=== PATIENT | male | born 1970 | race Caucasian/White ===

== ENCOUNTER 2016-12-03 21:02 | Emergency (ER) | payer BC, OTHER ==
--- NOTE | 2016-12-03 22:05 | ERPHSYRPT ---
- History of Present Illness Time Seen by Provider: 12/03/16 22:01 Source: patient Exam Limitations: no limitations Patient Subjective Stated Complaint: states that he was slipping to fall at work and caught his right arm on a bar, and heard a pop in the shoulder, causing pain - states that he can not raise the arm up now without terrible pain Triage Nursing Assessment: ambulatory to treatment area - steady gait - moves all extermities with equal strength - disability to the right arm and shoulder. skin flushed/hot/dry - no rash/injury. resps easy, non-labored, shallow per pain. 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 He prevented falling by grasping a bar at shoulder height, causing strain on his right shoulder. He is right-handed. His past medical history is significant for diabetes. Occurred: just prior to arrival Method of Injury: other Quality: aching Severity of Pain-Max: moderate Severity of Pain-Current: moderate Extremities Pain Location: shoulder: right Modifying Factors: Improves With: nothing Associated Symptoms: none Allergies/Adverse Reactions: No Known Drug Allergies Allergy (Unverified 12/03/16 21:13) Home Medications: Glimepiride 1 mg PO BID 12/03/16 [History] Metformin HCl 1,000 g PO BID 12/03/16 [History] Hx Tetanus, Diphtheria Vaccination/Date Given: Yes Hx Influenza Vaccination/Date Given: No Hx Pneumococcal Vaccination/Date Given: No Immunizations Up to Date: Yes - Review of Systems Constitutional: No Fever, No Chills Eyes: No Symptoms Ears, Nose, & Throat: No Symptoms Respiratory: No Cough, No Dyspnea Cardiac: No Chest Pain, No Edema, No Syncope Abdominal/Gastrointestinal: No Abdominal Pain, No Nausea, No Vomiting, No Diarrhea Genitourinary Symptoms: No Dysuria Musculoskeletal: Fall, Joint Pain Skin: No Rash Neurological: No Dizziness, No Focal Weakness, No Sensory Changes Psychological: No Symptoms Endocrine: No Symptoms Hematologic/Lymphatic: No Symptoms Immunological/Allergic: No Symptoms All Other Systems: Reviewed and Negative - Past Medical History Pertinent Past Medical History: Yes Cardiac History: Hypertension Endocrine Medical History: Diabetes Type II - Past Surgical History Past Surgical History: Yes Gastrointestinal: Appendectomy Musculoskeletal: Orthopedic Surgery Other Surgical History: ANKLES, WRIST - Social History Smoking Status: Never smoker Exposure to second hand smoke: No Drug Use: none Patient Lives Alone: No - Nursing Vital Signs Nursing Vital Signs: Initial Vital Signs Temperature 98.8 F Temperature Source Oral Pulse Rate 67 Respiratory Rate 20 Blood Pressure [Left Arm] 155/91 Pain Intensity 8 - Physical Exam General Appearance: alert Eyes, Ears, Nose, Throat Exam: moist mucous membranes Neck Exam: non-tender, supple Cardiovascular/Respiratory Exam: chest non-tender, normal breath sounds, regular rate/rhythm, no respiratory distress Abdominal Exam: non-tender, No guarding Back Exam: normal inspection, No vertebral tenderness Shoulder Exam: limited ROM (Evaluation of the right shoulder reveals limited range of upward extension secondary to pain. There is also limited range of external rotation of the right shoulder.) Elbow/Forearm Exam: normal inspection Wrist Exam: normal inspection Hand Exam: normal inspection Neuro/Tendon Exam: normal sensation, normal motor functions Mental Status Exam: alert, oriented x 3, cooperative Skin Exam: normal color, warm, dry SpO2 Interpretation: normal SpO2: 98 Oxygen Delivery: Room Air - Radiology Exams Right Shoulder X-ray Interpretation: Interpreted by me, Negative Ordered Tests: Active Orders 24 hr Category Date Time Status SHOULDER Stat Exams 12/03/16 22:05 Taken - Progress Progress: unchanged Counseled pt/family regarding: diagnosis, rad results - Departure Time of Disposition: 22:53 Departure Disposition: Home Clinical Impression: Right shoulder injury Condition: Stable Critical Care Time: No Additional Instructions: You injured her right shoulder while at work. The x-ray of your right shoulder did not show any bony abnormalities. The injury is likely a soft tissue injury that may involve the rotator cuff muscles. Wear the sling for comfort until follow-up with the Workmen's Comp. doctor on Tuesday. You have pain medicine at home. Take as directed.
[2016-12-03 22:48] VITALS: BP 155/91; PULSE 67
[2016-12-03 22:56] VITALS: O2SAT 98
--- NOTE | 2016-12-04 07:54 | XRAY ---
Indication: Pain following hyperextension injury. Comparison: None 3 views of the right shoulder demonstrates moderate AC degenerative arthropathy and right lung base subsegmental atelectasis/scarring. No other bony, articular, or soft tissue abnormalities.
== END 2016-12-03 23:03 | disposition home or self-care (01) ==
LOC: ED 21:02
DX: S49.91XA Unspecified injury of right shoulder and upper arm, initial encounter (principal); W01.198A Fall on same level from slipping, tripping and stumbling with subsequent striking against other object, initial encounter; Y93.39 Activity, other involving climbing, rappelling and jumping off; Y92.64 Mine or pit as the place of occurrence of the external cause; Y99.0 Civilian activity done for income or pay
CPT/HCPCS: 73030; 99283

== ENCOUNTER 2023-08-10 06:48 | Emergency (ER) | payer BC, OTHER ==
--- NOTE | 2023-08-10 07:11 | ERPHSYRPT ---
- History of Present Illness Time Seen by Provider: 08/10/23 07:05 Historian: patient, family Exam Limitations: no limitations Physician History: This is a 53-year-old white male patient who is a former smoker cigarettes and occasionally uses marijuana via smoking of marijuana and woke up suddenly at 4 AM with epigastric and lower chest pain. There is no radiation of the pain. Patient has a history of hypothyroidism and diabetes. He also has a history of coronary artery disease. In 2018 he underwent a 6 vessel cardiac bypass per his report in [facility]. Patient is not on any anticoagulation therapy. He denies having hypertension. He denies having hyperlipidemia. He woke up suddenly this morning and then went into work but the symptoms did not resolve. Patient ate goulash last evening (hamburger, cheese, peas and corn mixture). He does feel bloated and gassy. Timing/Duration: today Location: epigastric Chest Pain Radiation: no radiation Severity of Pain-Max: moderate Severity of Pain-Current: moderate Modifying Factors: Improves With: other (Patient did drink a Coke prior to arrival but this did not help his symptoms. He feels as though he has to burp.) Associated Symptoms: abdominal pain (Epigastric) Nitro Today/Relief: no nitro taken today Aspirin Treatment Today: no aspirin today Allergies/Adverse Reactions: No Known Drug Allergies Allergy (Verified 08/10/23 06:50) Home Medications: Glimepiride 1 mg PO BID 12/03/16 [History] Metformin HCl 1,000 mg PO BID 12/03/16 [History] Levothyroxine Sodium 112 Mcg [Synthroid 112 Mcg] 112 mcg PO DAILY 08/10/23 [History] Sertraline HCl 50 mg [Zoloft 50 mg Tablet] 50 mg PO DAILY 08/10/23 [History] Hx Tetanus, Diphtheria Vaccination/Date Given: Yes Hx Influenza Vaccination/Date Given: No Hx Pneumococcal Vaccination/Date Given: No Travel Risk - International Travel Have you traveled outside of the country in past 3 weeks: No - Coronavirus Screening Are you exhibiting any of the following symptoms?: No Close contact with a COVID-19 positive Pt in past 14-21 Days: No - Review of Systems Constitutional: No Symptoms Eyes: No Symptoms Ears, Nose, & Throat: No Symptoms Respiratory: No Symptoms Cardiac: Chest Pain Abdominal/Gastrointestinal: Abdominal Pain (Epigastric) Genitourinary Symptoms: No Symptoms Musculoskeletal: No Symptoms Skin: No Symptoms Neurological: No Symptoms Psychological: No Symptoms Endocrine: No Symptoms Hematologic/Lymphatic: No Symptoms Immunological/Allergic: No Symptoms All Other Systems: Reviewed and Negative - Past Medical History Pertinent Past Medical History: Yes Cardiac History: Hypertension Endocrine Medical History: Diabetes Type II - Past Surgical History Past Surgical History: Yes Gastrointestinal: Appendectomy Musculoskeletal: Orthopedic Surgery Other Surgical History: ANKLES, WRIST - Social History Smoking Status: Never smoker Exposure to second hand smoke: No Drug Use: none Patient Lives Alone: No - Nursing Vital Signs Nursing Vital Signs: Initial Vital Signs Temperature 97.2 F 08/10/23 06:49 Pulse Rate 78 08/10/23 06:49 Respiratory Rate 26 H 08/10/23 06:49 Blood Pressure 198/114 08/10/23 06:49 O2 Sat by Pulse Oximetry 98 08/10/23 06:49 Pain Scale Pain Intensity 0 - Physical Exam General Appearance: no apparent distress, alert, anxiety Eye Exam: PERRL/EOMI, eyes nml inspection Ears, Nose, Throat Exam: normal ENT inspection, moist mucous membranes Neck Exam: normal inspection, non-tender, supple, full range of motion Respiratory Exam: normal breath sounds, chest tenderness, lungs clear, airway intact, No respiratory distress Cardiovascular Exam: regular rate/rhythm, normal heart sounds, normal peripheral pulses Gastrointestinal/Abdomen Exam: soft, normal bowel sounds, tenderness (Gastrium), guarding (Epigastrium), No rebound Rectal Exam: not done Back Exam: normal inspection, normal range of motion, No CVA tenderness, No vertebral tenderness Extremity Exam: normal inspection, normal range of motion, pelvis stable Neurologic Exam: alert, oriented x 3, cooperative, merchant mariner II-XII nml as tested, normal mood/affect, nml cerebellar function, nml station & gait, sensation nml Skin Exam: normal color, warm, dry Lymphatic Exam: No adenopathy SpO2 Interpretation: normal O2 Delivery: Room Air - Course Nursing assessment & vital signs reviewed: Yes EKG Interpreted by Me: RATE (81), Sinus Rhythm, NORMAL AXIS, NORMAL INTERVALS, NORMAL QRS, NORMAL ST-T, Other (No acute ischemia on today's twelve-lead EKG.) Ordered Tests: Active Orders 24 hr Category Date Time Status Construction Foreman STAT Care 08/10/23 07:24 Active EKG-ER Only STAT Care 08/10/23 07:23 Active IV Insertion STAT Care 08/10/23 07:23 Active Pulse Oximetry (ED) STAT Care 08/10/23 07:23 Active ABDOMEN AND PELVIS W/0 CONTRAS [CT] Stat Exams 08/10/23 07:39 Completed AMYLASE Stat Lab 08/10/23 07:35 Completed CBC W DIFF Stat Lab 08/10/23 07:35 Completed CMP Stat Lab 08/10/23 07:35 Completed D-DIMER QUANTITATIVE Stat Lab 08/10/23 07:35 Completed LIPASE Stat Lab 08/10/23 07:35 Completed PROTIME WITH INR Stat Lab 08/10/23 07:35 Completed TROPONIN Q4H Lab 08/10/23 07:35 Completed TROPONIN Q4H Lab 08/10/23 10:15 Completed TROPONIN Q4H Lab 08/10/23 15:30 Ordered TSH, 3RD Generation Stat Lab 08/10/23 07:35 Completed Medication Summary Discontinued Medications Generic Name Dose Route Start Last Admin Trade Name Moq PRN Reason Stop Dose Admin Aspirin 324 mg 08/10/23 07:23 08/10/23 07:31 Aspirin 81 Mg Tab.Chew PO 08/10/23 07:24 324 mg STAT ONE Administration Aspirin Confirm 08/10/23 07:29 Aspirin 81 Mg Tab.Chew Administered 08/10/23 07:30 Dose 324 mg .ROUTE .STK-MED ONE Morphine Sulfate 2 mg 08/10/23 07:36 08/10/23 07:57 Morphine Sulfate 2 Mg/Ml Inj IV 08/10/23 07:37 2 mg STAT ONE Administration Morphine Sulfate Confirm 08/10/23 07:52 Morphine Sulfate 2 Mg/Ml Inj Administered 08/10/23 07:53 Dose 2 mg .ROUTE .STK-MED ONE Nitroglycerin 0.4 mg 08/10/23 07:35 08/10/23 07:55 Nitroglycerin 0.4 Mg Tablet Bottle SL 08/10/23 07:36 0.4 mg STAT ONE Administration Nitroglycerin Confirm 08/10/23 07:52 Nitroglycerin 0.4 Mg (Ed) 0.4 Mg Tab.Subl Administered 08/10/23 07:53 Dose 0.4 mg SL .STK-MED ONE Ondansetron HCl 4 mg 08/10/23 07:36 08/10/23 07:55 Ondansetron Hcl 4 Mg/2 Ml Vial IV 08/10/23 07:37 4 mg STAT ONE Administration Ondansetron HCl Confirm 08/10/23 07:51 Ondansetron Hcl 4 Mg/2 Ml Vial Administered 08/10/23 07:52 Dose 4 mg .ROUTE .STK-MED ONE Lab/Rad Data: Laboratory Result Diagrams 08/10/23 07:35 08/10/23 07:35 Laboratory Results 08/10/23 08/10/23 08/10/23 Range/Units 10:15 07:35 07:35 WBC (4.0-10.5) x10^3/uL RBC (4.1-5.6) x10^6/uL Hgb (12.5-18.0) g/dL Hct (42-50) % MCV (78-100) fL MCH (26-32) pg MCHC (32-36) g/dL RDW (11.5-14.0) % Plt Count (150-450) x10^3/uL MPV (7.5-11.0) fL Gran % (36.0-66.0) % Immature Gran % (Auto) (0.00-0.4) % Nucleat RBC Rel Count (0.00-0.1) % Eos # (Auto) (0-0.5) x10^3/uL Immature Gran # (Auto) (0.00-0.03) x10^3u/L Absolute Lymphs (auto) (1.0-4.6) x10^3/uL Absolute Monos (auto) (0.0-1.3) x10^3/uL Absolute Nucleated RBC (0.00-0.01) x10^3u/L Lymphocytes % (24.0-44.0) % Monocytes % (0.0-12.0) % Eosinophils % (0.00-5.0) % Basophils % (0.0-0.4) % Absolute Granulocytes (1.4-6.9) x10^3/uL Basophils # (0-0.4) x10^3/uL PT 10.3 (9.4-12.5) SECONDS INR 0.94 (0.8-3.0) D-Dimer 0.33 (0.0-0.50) mg/L Sodium (137-145) mmol/L Potassium (3.5-5.1) mmol/L Chloride (98-107) mmol/L Carbon Dioxide (22-30) mmol/L Anion Gap (5-15) MEQ/L BUN (9-20) mg/dL Creatinine (0.66-1.25) mg/dL Estimated GFR ML/MIN Glucose (74-106) mg/dL Calcium (8.4-10.2) mg/dL Total Bilirubin (0.2-1.3) mg/dL AST (17-59) U/L ALT (0-50) U/L Alkaline Phosphatase (38-126) U/L Troponin I < 0.012 < 0.012 (0.000-0.034) ng/mL Serum Total Protein (6.3-8.2) g/dL Albumin (3.5-5.0) g/dL Amylase (30-110) U/L Lipase (23-300) U/L TSH 3rd Generation (0.47-4.68) mIU/L 08/10/23 08/10/23 Range/Units 07:35 07:35 WBC 9.3 (4.0-10.5) x10^3/uL RBC 4.90 (4.1-5.6) x10^6/uL Hgb 16.0 (12.5-18.0) g/dL Hct 43.6 (42-50) % MCV 89.0 (78-100) fL MCH 32.7 H (26-32) pg MCHC 36.7 H (32-36) g/dL RDW 12.4 (11.5-14.0) % Plt Count 216 (150-450) x10^3/uL MPV 10.3 (7.5-11.0) fL Gran % 66.9 H (36.0-66.0) % Immature Gran % (Auto) 0.6 H (0.00-0.4) % Nucleat RBC Rel Count 0.0 (0.00-0.1) % Eos # (Auto) 0.30 (0-0.5) x10^3/uL Immature Gran # (Auto) 0.06 H (0.00-0.03) x10^3u/L Absolute Lymphs (auto) 1.83 (1.0-4.6) x10^3/uL Absolute Monos (auto) 0.85 (0.0-1.3) x10^3/uL Absolute Nucleated RBC 0.00 (0.00-0.01) x10^3u/L Lymphocytes % 19.6 L (24.0-44.0) % Monocytes % 9.1 (0.0-12.0) % Eosinophils % 3.2 (0.00-5.0) % Basophils % 0.6 (0.0-0.4) % Absolute Granulocytes 6.23 (1.4-6.9) x10^3/uL Basophils # 0.06 (0-0.4) x10^3/uL PT (9.4-12.5) SECONDS INR (0.8-3.0) D-Dimer (0.0-0.50) mg/L Sodium 137 (137-145) mmol/L Potassium 4.5 (3.5-5.1) mmol/L Chloride 105 (98-107) mmol/L Carbon Dioxide 17 L (22-30) mmol/L Anion Gap 19.1 H (5-15) MEQ/L BUN 21 H (9-20) mg/dL Creatinine 1.22 (0.66-1.25) mg/dL Estimated GFR 70.9 ML/MIN Glucose 287 H (74-106) mg/dL Calcium 10.5 H (8.4-10.2) mg/dL Total Bilirubin 1.10 (0.2-1.3) mg/dL AST 42 (17-59) U/L ALT 47 (0-50) U/L Alkaline Phosphatase 57 (38-126) U/L Troponin I (0.000-0.034) ng/mL Serum Total Protein 7.9 (6.3-8.2) g/dL Albumin 5.0 (3.5-5.0) g/dL Amylase 69 (30-110) U/L Lipase 103 (23-300) U/L TSH 3rd Generation 5.420 H (0.47-4.68) mIU/L - Progress Air Movement: good Progress Note: 08/10/23 08:54 This patient's medical issue is 1 of moderate complexity. The level of complexity in the workup performed is based on review of the patient's past me dical history, review of the patient's medication list, review of the patient's drug allergy list, history of present illness and physical findings on examination. The workup in this patient includes placement of intravenous line, CBC, CMP, BNP, D-dimer, troponin level, twelve-lead EKG, amylase, lipase, CT scan of the abdomen pelvis without contrast. CT scan of the abdomen and pelvis without contrast was interpreted by the radiologist. I reviewed the impression. Findings include distended gallbladder without gallstones and without biliary distention. There is no abdominal aortic aneurysm. An appendectomy is present. There are aortoiliac calcifications. There is mild descending and sigmoid colon diverticulosis without diverticulitis. There is no free air or free fluid present. These findings were discussed with the patient. 08/10/23 10:45 I interpreted the patient's laboratory data results. He does not have any evidence for acute or emergent medical issue based on his laboratory data results. I interpreted the 3-hour twelve-lead EKG that was performed on 08/10/2023 at 10:39 a.m. There are no acute ischemic changes on today's twelve-lead EKG. There is a heart rate of 78 it is in sinus rhythm. There is normal axis deviation. Normal intervals and normal QRS. Patient has no chest pain. Blood Culture(s) Obtained: No Antibiotics given: No Counseled pt/family regarding: lab results, diagnosis, need for follow-up, rad results Medical Desision Making - Independent Historian Additional History obtained from: Family - Diagnostic Testing Diagnostic test were ordered, analyzed, and reviewed by me: Yes Radiological Interpretation: Reviewed by me, Teleradiologist Report - Risk of complications Low Risk: Low risk of morbidity from additional dx testing or treatment - Departure Departure Disposition: Home Clinical Impression: Epigastric abdominal pain Condition: Stable Critical Care Time: No Referrals: EHSAN RAMOS [NON-STAFF PHY W/O PRIVILEGES] - Follow up/PCP as directed Additional Instructions: Drink plenty of fluids. Take your medication as prescribed. Avoid fatty greasy spicy foods. Follow-up with your primary care provider and ingot passer today to make arrangements for further evaluation and management the next 3 to 5 days.
[2023-08-10 07:12] VITALS: TEMP 97.2
[2023-08-10] MEDS ORDERED: BABY ASPIRIN 81 MG CHEW ONE (07:29)
[2023-08-10] MEDS: BABY ASPIRIN 81 MG CHEW PO ONE (07:31)
[2023-08-10 07:44] LABS: Absolute Neutrophil Ct (ANC) 6.23 x10^3/uL (1.4-6.9); BASOPHIL % 0.6 % (0.0-0.4); Basophil (Absolute #) 0.06 x10^3/uL (0-0.4); Eosinophil % 3.2 % (0.00-5.0); Hematocrit 43.6 % (42-50); IMMATURE GRAN # 0.06 x10^3u/L (0.00-0.03); IMMATURE GRAN % 0.6 % (0.00-0.4); Lymphocyte (Absolute #) 1.83 x10^3/uL (1.0-4.6); Lymphocytes % 19.6 % (24.0-44.0); Mean Corpuscular Hemoglobin 32.7 pg (26-32); Mean Corpuscular Hgb Concent. 36.7 g/dL (32-36); Mean Platelet Volume 10.3 fL (7.5-11.0); Monocyte (Absolute #) 0.85 x10^3/uL (0.0-1.3); Monocytes % 9.1 % (0.0-12.0); Neutrophil % 66.9 % (36.0-66.0); Platelet Count 216 x10^3/uL (150-450); Red Cell Distribution Width 12.4 % (11.5-14.0); White Blood Count 9.3 x10^3/uL (4.0-10.5)
[2023-08-10] MEDS ORDERED: Zofran 4 MG/2 ML VIAL ONE (07:51)
[2023-08-10] MEDS ORDERED: MORPHINE SULFATE 2 MG INJ ONE (07:52)
[2023-08-10] MEDS ORDERED: Nitrostat 0.4 MG (ED) SL ONE (07:52)
[2023-08-10 07:54] LABS: D-DIMER QUANTITATIVE 0.33 mg/L (0.0-0.50); INR 0.94 (0.8-3.0); PROTIME 10.3 SECONDS (9.4-12.5)
[2023-08-10] MEDS: Zofran 4 MG/2 ML VIAL IV ONE (07:55)
[2023-08-10] MEDS: Nitrostat 0.4 MG Tablet SL ONE (07:55)
[2023-08-10] MEDS: MORPHINE SULFATE 2 MG INJ IV ONE (07:57)
[2023-08-10 08:32] LABS: ANION GAP 19.1 MEQ/L (5-15); BILIRUBIN,TOTAL 1.1 mg/dL (0.2-1.3); Calcium 10.5 mg/dL (8.4-10.2); Creatinine 1 1.22 mg/dL (0.66-1.25); EST GLOMERULAR FILTRATION RATE 70.9 ML/MIN; Potassium 4.5 mmol/L (3.5-5.1); TSH, 3RD Generation 5.42 mIU/L (0.47-4.68); Total Protein 7.9 g/dL (6.3-8.2)
--- NOTE | 2023-08-10 08:41 | XRAY ---
Indication: Epigastric pain. Multiple contiguous axial images obtained through the abdomen and pelvis without contrast. Comparison: None Lung bases clear. Heart not enlarged. Noncontrasted stomach and bowel loops appear nonobstructed. Appendectomy reported. Minimal descending and sigmoid diverticulosis without diverticulitis. Moderately distended gallbladder without gallstones or biliary distention. No free fluid/air. Remaining liver, pancreas, spleen, adrenal glands, kidneys, ureters, and bladder are unremarkable for noncontrast exam. Mild scattered aortoiliac calcifications without AAA. Osseous structures intact with mild degenerative changes throughout the thoracolumbar spine and both hips. Impression: 1. Distended gallbladder. Sonogram may yield further information if clinically warranted. 2. Chronic findings including colonic diverticulosis, arteriosclerotic disease, and chronic bony findings.
[2023-08-10 10:41] VITALS: O2SAT 97
[2023-08-10 11:35] VITALS: BP 144/89; PULSE 79; RESP 22
== END 2023-08-10 11:36 | disposition home or self-care (01) ==
LOC: ED 06:48
DX: R10.13 Epigastric pain (principal); R07.9 Chest pain, unspecified; I10 Essential (primary) hypertension; E11.9 Type 2 diabetes mellitus without complications; Z79.84 Long term (current) use of oral hypoglycemic drugs; Z79.899 Other long term (current) drug therapy
CPT/HCPCS: 36000; 36415; 74176; 80053; 82150; 83690; 84439; 84443; 84484; 85025; 85379; 85610; 93005; 93041; 94760; 96374; 96375; 99284; J2270; J2405; A9270-GY

== ENCOUNTER 2024-01-02 08:16 | Day surgery (SDC) | payer BC ==
--- NOTE | 2024-01-02 08:23 | HP ---
HISTORY OF PRESENT ILLNESS: The patient has had some right upper quadrant epigastric pain. Two attacks. Has had ultrasound, no stones. He had an abnormal HIDA of 18% suggestive of chronic cholecystitis, dyskinesia. No nausea or vomiting. No change in bowel habits. Denies any liver problems. PAST MEDICAL HISTORY: Hypothyroidism, type 2 diabetes, hyperlipidemia, depression, anxiety. HOME MEDICATIONS: Aspirin, simvastatin, sertraline, levothyroxine, glimepiride, metformin. ALLERGIES: No known drug allergies. PAST SURGICAL HISTORY: Had CABG, 6 vessels in the past; appendectomy; ankle surgery; rotator cuff; wrist surgery; and vasectomy in the past. SOCIAL HISTORY: No smoking. Occasional alcohol use. Occasional marijuana use. FAMILY HISTORY: Mother with diabetes, heart disease, and breast cancer. Unknown for colon polyps. REVIEW OF SYSTEMS: Twelve systems reviewed. No chest pain or palpitations. Other systems negative or noncontributory as above and per preadmission questionnaire. PHYSICAL EXAMINATION: VITAL SIGNS: Height 6 feet 1 inch. BMI 29.68. GENERAL: No acute distress. HEENT: Sclerae nonicteric. Extraocular movements intact. NECK: No JVD. CHEST: Equal excursion, nonlabored breathing. CARDIOVASCULAR: Regular rate and rhythm. ABDOMEN: Soft, nontender at office visit. EXTREMITIES: No cyanosis or edema. NEUROLOGIC: Alert and oriented, moving all extremities symmetrically. PSYCHIATRIC: Appropriate mood and affect. SKIN: Dry. IMPRESSION: Acute exacerbation of chronic cholecystitis, symptomatic with dyskinesia; abnormal HIDA scan 18%. Feel the patient would benefit from cholecystectomy. Shown the gallbladder pamphlet and risks explained in detail including but not limited to risk of bleeding and infection; risk of trocar injury and hernia; risk of bowel, bladder, or blood vessel injury; risk of bile leak or bile duct injury or retained stone or sludge possibly requiring further procedure, open or ERCP; risk of anesthesia, DVT, PE, pneumonia; possibility of no improvement of preoperative symptoms possibly requiring further workup, studies, endoscopy, other studies or referrals. We will proceed with laparoscopic cholecystectomy, possibly open, as an outpatient under general anesthetic. Otherwise, continue medication for anxiety, hyperlipidemia, thyroid disease, diabetes, heart disease.
[2024-01-02] MEDS ORDERED: NEURONTIN ONE (08:25)
[2024-01-02] MEDS ORDERED: TYLENOL EXTRA STRENGTH 500 MG ONE (08:25)
[2024-01-02] MEDS ORDERED: Decadron 4 MG ONE (08:25)
[2024-01-02] MEDS ORDERED: MEFOXIN 2 GM PREMIX** 2 GM/50 ML ML IV ONE (08:25)
[2024-01-02] MEDS ORDERED: Lactated Ringers 1,000 ML IV ONE (08:26)
[2024-01-02] MEDS ORDERED: celeBREX 100 MG ONE (08:26)
[2024-01-02] MEDS: Lactated Ringers 1,000 ML IV SCH (08:38)
[2024-01-02] MEDS: MEFOXIN 2 GM PREMIX** 2 GM/50 ML ML IV SCH (08:38)
[2024-01-02] MEDS: NEURONTIN PO ONE (08:39)
[2024-01-02] MEDS: TYLENOL EXTRA STRENGTH 500 MG PO ONE (08:39)
[2024-01-02] MEDS: celeBREX 100 MG PO ONE (08:40)
[2024-01-02] MEDS: Decadron 4 MG PO ONE (08:40)
[2024-01-02 09:04] LABS: Basophil (Absolute #) 0.06 x10^3/uL (0.01-0.08); Eosinophil % 3.9 % (0.8-7.0); Eosinophil (Absolute #) 0.23 x10^3/uL (0.04-0.54); Hematocrit 39.3 % (40.1-51.0); Hemoglobin 14.6 g/dL (13.7-17.5); IMMATURE GRAN # 0.02 x10^3u/L (0.001-0.031); IMMATURE GRAN % 0.3 % (0.001-0.429); Lymphocytes % 27.2 % (21.8-53.1); Mean Cell Volume 88.1 fL (79.0-92.2); Mean Corpuscular Hemoglobin 32.7 pg (25.7-32.2); Mean Corpuscular Hgb Concent. 37.2 g/dL (32.3-36.5); Monocyte (Absolute #) 0.68 x10^3/uL (0.30-0.82); Monocytes % 11.5 % (5.3-12.2); Neutrophil % 56.1 % (34.0-67.9); Platelet Count 205 x10^3/uL (163-337); Red Blood Count 4.46 x10^6/uL (4.63-6.08); Red Cell Distribution Width 12.5 % (11.6-14.4); White Blood Count 5.9 x10^3/uL (4.23-9.07)
[2024-01-02 09:15] LABS: ALBUMIN 4.7 g/dL (3.5-5.0); ANION GAP 10.5 MEQ/L (5-15); BILIRUBIN,TOTAL 0.9 mg/dL (0.2-1.3); Calcium 9.6 mg/dL (8.4-10.2); Creatinine 1 0.99 mg/dL (0.66-1.25); EST GLOMERULAR FILTRATION RATE 91.1 ML/MIN; Potassium 4.5 mmol/L (3.5-5.1); Total Protein 7.5 g/dL (6.3-8.2)
[2024-01-02] MEDS ORDERED: Sensorcaine 0.25% 10 ML ONE (09:35)
[2024-01-02] MEDS ORDERED: DIPRIVAN 200 MG/20 ML IV ONE ×2 (10:38→11:00)
[2024-01-02] MEDS ORDERED: Xylocaine-Mpf 2% 5 Ml Vial ONE (10:39)
[2024-01-02] MEDS ORDERED: ROCURONIUM BROMIDE IV ONE ×2 (10:40→11:06)
[2024-01-02] MEDS ORDERED: SUBLIMAZE 100 MCG/2 ML ONE ×3 (10:41→12:28)
[2024-01-02] MEDS ORDERED: DEXMEDETOMIDINE 80 MCG/20ML-NS IV ONE (10:41)
[2024-01-02] MEDS ORDERED: Versed 2 MG/2 ML Injection ONE (10:46)
[2024-01-02] MEDS ORDERED: Pre-Attached Lta Kit TP ONE (10:55)
[2024-01-02] MEDS ORDERED: BRIDION 200MG/2ML IV ONE ×2 (11:40→11:46)
[2024-01-02] MEDS ORDERED: Hydromorphone 1 mg/ml Injection ONE (12:28)
[2024-01-02 13:44] VITALS: RESP 16
[2024-01-02] MEDS: NORCO 5/325 MG PO PRN (14:16)
[2024-01-02] MEDS: MORPHINE SULFATE 4 MG INJ IV PRN (14:23)
[2024-01-02 14:30] VITALS: BP 134/87; PULSE 82; TEMP 97.3; O2SAT 97
--- NOTE | 2024-01-03 11:34 | OP ---
SURGERY DATE/TIME: 01/02/2024 1050 - 0142 PREOPERATIVE DIAGNOSES: Acute exacerbation of chronic cholecystitis, symptomatic biliary dyskinesia. POSTOPERATIVE DIAGNOSES: Acute exacerbation of chronic cholecystitis, symptomatic biliary dyskinesia. PROCEDURE: Laparoscopic cholecystectomy. SURGEON: Cullen Coleman MD ANESTHESIA: General. ESTIMATED BLOOD LOSS: Minimal. INDICATIONS: As noted above. Risks and benefits explained in detail, but not limited to. Consent obtained. DESCRIPTION OF PROCEDURE AND FINDINGS: The patient was taken to the operating room. General anesthesia was induced, prepped and draped in the usual sterile fashion. After official time-out and no disagreement in planned procedure, transverse incision made at the supraumbilical area. Fascia grasped and pulled upward. Veress needle inserted. Tested with saline. Pneumoperitoneum accomplished insufflating from an opening pressure of 0 to 15. A 5 mm bladeless port and camera inserted without difficulty, followed by two 5 mm right upper quadrant ports and an 11 mm epigastric port. There was no evidence of any intra-abdominal injury secondary to trocar insertion. Extensive omental adhesions over the top of the gallbladder. It took sometime but these were carefully freed, allowing the gallbladder to be grasped, edge of the liver. Dissection carried posterolateral to anterior fashion. Slowly and carefully, the cystic duct and infundibular area was slowly and carefully isolated until the critical view was obtained anteriorly and posteriorly. Once this was accomplished, the cystic duct and the cystic artery were clipped x3 and divided in usual fashion. The gallbladder was slowly and carefully dissected free from its dense attachments to the liver bed staying directly on the gallbladder wall, clipping additional oozing side branches off the cystic artery and cystic duct as necessary. Just prior to releasing the final attachments to the anterior edge of the liver, the liver bed reinspected. Clips noted to be in place in the cystic duct and cystic artery stumps. Again, the gallbladder was quite vascular and required clipping of additional oozing side branches off the cystic artery and cystic vein as necessary along the gallbladder wall. Gallbladder was continued to be dissected free. Just prior to releasing the final attachments to the anterior edge of the liver, the liver bed reinspected. Clips noted to be in place in the cystic duct and cystic artery stumps. No signs of any active bleeding or bile leakage from the liver bed or the cystic duct stump itself. It was felt there was no benefit of any drain placement. The gallbladder was released from its final attachments to the anterior edge of the liver, placed in a , pulled up and out of the epigastrium, slightly the fascia with a clamp. The gallbladder and bag were pulled free and passed off. This fascial defect closed with puncture closure device with #1 Vicryl. Copious amount of irrigation accomplished lateral to the liver, and subhepatic space was irrigated clear. Clips noted to be in place in cystic duct and cystic artery stumps. It was felt there was no benefit of any drain placement. Pneumoperitoneum decompressed. Again, #1 Vicryl placed with puncture closure device to secure the fascia of the epigastric area edge. This was felt to warrant the UR needle, 0 Vicryl was also placed. Wounds irrigated out. Skin incision closed with 4-0 Vicryl. Steri-Strips and sterile dressing applied. Patient tolerated the procedure well. There were no immediate complications. I went to see if he had family in the waiting area.
== END 2024-01-02 14:41 | disposition home or self-care (01) ==
LOC: SDC 08:16
PROVIDERS: ATTEND Surgery
DX: K81.0 Acute cholecystitis (principal); K82.8 Other specified diseases of gallbladder; E11.9 Type 2 diabetes mellitus without complications; Z80.3 Family history of malignant neoplasm of breast
CPT/HCPCS: 36415; 80053; 82947; 85025; 93005; J0694; J1170; J2250; J2270; J2704; J3010; A9270-GY